=== PATIENT | female | born 1950 | race Caucasian/White ===

== ENCOUNTER 2019-09-17 09:25 | Day surgery (SDC) | payer BC ==
[~2019-09-17] VITALS: Ht 154.9 cm; Wt 51.3 kg
[2019-09-17] MEDS ORDERED: LOSA50 (09:38)
[2019-09-17] MEDS ORDERED: Crestor40 MG (09:38)
[2019-09-17] MEDS ORDERED: CILO100 (09:39)
[2019-09-17] MEDS ORDERED: ASPI81CH (09:39)
[2019-09-17] MEDS ORDERED: VITAMIN D3125 MC4 (09:40)
== END 2019-09-17 11:32 | disposition home or self-care (01) ==
LOC: ORSCSDS 09:25
PROVIDERS: Internal Medicine Gastroenterology
PROC: 0DBL8ZX Excision of Transverse Colon, Via Natural or Artificial Opening Endoscopic, Diagnostic (ICD-10-PCS; principal; 2019-09-17 10:30)
PROC: 0DBN8ZX Excision of Sigmoid Colon, Via Natural or Artificial Opening Endoscopic, Diagnostic (ICD-10-PCS; principal; 2019-09-17 10:30)
DX: R19.5 Other fecal abnormalities (principal); D12.3 Benign neoplasm of transverse colon; D12.5 Benign neoplasm of sigmoid colon; K64.8 Other hemorrhoids; I10 Essential (primary) hypertension; K64.4 Residual hemorrhoidal skin tags; K63.89 Other specified diseases of intestine; I73.9 Peripheral vascular disease, unspecified; K57.30 Diverticulosis of large intestine without perforation or abscess without bleeding; F17.210 Nicotine dependence, cigarettes, uncomplicated; Z79.899 Other long term (current) drug therapy; Z79.82 Long term (current) use of aspirin
CPT/HCPCS: 88305; J2704; J7120

== ENCOUNTER → 2024-04-07 | Outpatient (CLI) | payer BC ==
[~2024-04-07] MED LIST: ASPI81CH; CILO100; Crestor40 MG; LOSA50; VITAMIN D3125 MC4
== END ==
LOC: LAB SHORT 13:45 → LAB 13:45
DX: R31.9 Hematuria, unspecified (principal)
CPT/HCPCS: 87077; 87086; 87186